=== PATIENT | male | born 1945 | race Caucasian/White ===

== ENCOUNTER 2016-10-22 11:19 | Emergency (ER) | payer MEDICARE ==
[2016-10-22 11:39] VITALS: BP 149/70
[2016-10-22] MEDS ORDERED: Bacitracin Oint 1 GM U/D Packet TOP ONE (12:04)
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
== END 2016-10-22 12:36 | disposition home or self-care (01) ==
LOC: JP.ED 11:19
DX: S61.215A Laceration without foreign body of left ring finger without damage to nail, initial encounter (principal); I25.2 Old myocardial infarction; E11.9 Type 2 diabetes mellitus without complications; I10 Essential (primary) hypertension; F17.210 Nicotine dependence, cigarettes, uncomplicated; E78.00 Pure hypercholesterolemia, unspecified; Z79.82 Long term (current) use of aspirin; Z79.01 Long term (current) use of anticoagulants; Z79.84 Long term (current) use of oral hypoglycemic drugs; Z88.0 Allergy status to penicillin; Z95.5 Presence of coronary angioplasty implant and graft; Z98.890 Other specified postprocedural states; Z95.4 Presence of other heart-valve replacement; W26.0XXA Contact with knife, initial encounter
CPT/HCPCS: 12001; 99282-25; 99283-25